=== PATIENT | female | born 1985 | race Caucasian/White ===

== ENCOUNTER 2023-04-06 10:29 | Emergency (ER) | payer BC ==
[~2023-04-06] VITALS: Ht 177.8 cm; Wt 97.5 kg
[2023-04-06 10:41] VITALS: BP 131/91; TEMP 97.8; O2SAT 98
[2023-04-06] MEDS ORDERED: KETOROLAC TROMETHAMINE INJ 30 MG/ML VIAL IM ONE (11:30)
[2023-04-06] MEDS ORDERED: KETOROLAC TROMETHAMINE 15 MG/ML VIAL ONE (11:34)
[2023-04-06] MEDS ORDERED: BENZ-13 PO (12:45)
[2023-04-06] MEDS ORDERED: IBUP-1955 PO (12:45)
== END 2023-04-06 12:54 | disposition home or self-care (01) ==
LOC: ER 10:29
DX: S23.41XA Sprain of ribs, initial encounter (principal); M94.0 Chondrocostal junction syndrome [Tietze]; X58.XXXA Exposure to other specified factors, initial encounter; Y93.89 Activity, other specified; Y92.89 Other specified places as the place of occurrence of the external cause; Y99.8 Other external cause status
CPT/HCPCS: 99283; 96372; 71100; J1885